=== PATIENT | female | born 1955 | race Hispanic/Latino ===

== ENCOUNTER 2018-06-20 07:13 | Day surgery (SDC) | payer OTHER ==
[2018-06-13 15:28] LABS: BASOPHILS % (AUTO) 0.6 % (0.0-5.0); EOSINOPHILS % (AUTO) 2.2 % (0.0-8.0); HEMATOCRIT 31.2 % (36-48); LYMPHOCYTES % (AUTO) 33.8 % (21.0-51.0); MEAN CORPUSCULAR HEMOGLOBIN 27.6 pg (27.0-33.0); MEAN CORPUSCULAR HGB CONC 32.9 g/dL (32.0-36.0); MEAN CORPUSCULAR VOLUME 83.9 fL (79-99); MONOCYTES % (AUTO) 5.4 % (3.0-13.0); PLATELET COUNT (AUTO) 200 K/uL (130-400); RED BLOOD CELL COUNT(AUTO) 3.72 MIL/uL (4.00-5.50); RED CELL DISTRIBUTION WIDTH 13.9 % (11.0-15.5); WHITE BLOOD COUNT (AUTO) 6.1 K/uL (4.8-10.8)
[2018-06-13 15:29] LABS: APPEARANCE,URINE Clear (CLEAR); BILIRUBIN,URINE Negative (NEGATIVE); COLOR,URINE Yellow (YELLOW); GLUCOSE, URINE (UA) Negative (NEGATIVE); KETONES,URINE Trace mg/dL (NEGATIVE); LEUKOCYTE ESTERASE ,URINE Small (NEGATIVE); NITRATE,URINE Negative (NEGATIVE); OCCULT BLOOD,URINE Negative (NEGATIVE); PH,URINE 6.5 (5.0-8.0); PROTEIN,URINE Negative (NEGATIVE)
[2018-06-13 15:37] LABS: RBC,URINE 0-1 /HPF (0-1)
[2018-06-13 15:38] LABS: BACTERIA,URINE Few /HPF (None Seen)
[2018-06-13 15:39] LABS: CREATININE 0.8 mg/dL (0.5-1.5); POTASSIUM 3.7 mmol/L (3.5-5.1)
[2018-06-13 15:39] LABS: SQUAMOUS EPITHELIAL CELL,UR Few /HPF (0-2)
[2018-06-13 15:42] LABS: INR 0.95 (0.85-1.15)
[2018-06-13 16:11] VITALS: BP 146/63
--- NOTE | 2018-06-17 12:02 | NUR ---
CLARIFICATION ORDER CALLED OFFICE TO CLARIFY ADM STATUS LEVEL OF CARE. PER VIC, LEVEL OF CARE IS DAY PATIENT.
[~2018-06-20] VITALS: Ht 157.5 cm; Wt 111.6 kg
[2018-06-20] VITALS (9 sets, daily range): BP systolic 108–125; BP diastolic 54–71
[~2018-06-20 07:13] MED LIST: ASPI-555 PO; ATOR20TA65 PO; HYDR25TA PO; ISOS60TA4 PO; LABE200T5 PO; MELO15TA12 PO; MONT10TA21 PO; NITR0.4T SL; SODIUM CHLORIDE 0.9% 500ML 500 ML IV SCH
[2018-06-20] MEDS ORDERED: SODIUM CHLORIDE 0.9% 1000ML 1,000 ML IV ONE (07:30)
[2018-06-20] MEDS ORDERED: PHARMACY COMMUNICATION MISC SCH (08:15)
[2018-06-20] MEDS ORDERED: IOHEXOL 350 MG/ML 100ML INFUS..BTL IV ONE (08:49)
[2018-06-20] MEDS ORDERED: IOHEXOL-350 50ML VIAL IV ONE (08:49)
[2018-06-20] MEDS ORDERED: BIVALIRUDIN 250 MG/VIAL IV ONE (08:49)
[2018-06-20] MEDS ORDERED: LIDOCAINE HCL 2% 20ML ONE (08:49)
[2018-06-20] MEDS ORDERED: NITROGLYCERIN 5 MG/ML 10 ML VIAL IV ONE (08:49)
[2018-06-20] MEDS ORDERED: MIDAZOLAM HCL 1 MG/ML 2ML VIAL ONE (08:56)
[2018-06-20] MEDS ORDERED: SODIUM CHLORIDE 0.9% 1000ML 1,000 ML IV SCH (10:20)
[2018-06-20] MEDS ORDERED: ACETAMINOPHEN 325 MG TAB PO ONE (12:45)
== END 2018-06-20 14:13 | disposition home or self-care (01) ==
LOC: DAH 07:13
PROVIDERS: ATTEND Internal Medicine Cardiovascular Disease
DX: I25.118 Atherosclerotic heart disease of native coronary artery with other forms of angina pectoris (principal); E78.5 Hyperlipidemia, unspecified; E11.9 Type 2 diabetes mellitus without complications; M19.90 Unspecified osteoarthritis, unspecified site; E66.9 Obesity, unspecified; Z79.899 Other long term (current) drug therapy; Z79.01 Long term (current) use of anticoagulants; Z88.8 Allergy status to other drugs, medicaments and biological substances; Z83.3 Family history of diabetes mellitus; Z82.49 Family history of ischemic heart disease and other diseases of the circulatory system; Z90.710 Acquired absence of both cervix and uterus; Z98.890 Other specified postprocedural states; D64.9 Anemia, unspecified; E78.2 Mixed hyperlipidemia; Z68.41 Body mass index [BMI] 40.0-44.9, adult
CPT/HCPCS: 36415; 71045; 80048; 81001; 85025; 85610; 85730; 93005; 93458; A4606; C1760; C1894; J1644; J2250; J3490 ×2; J7030; Q9965; Q9967 ×2; 99156; 99157; J0583